=== PATIENT | female | born 1975 | race Two or more races ===

== ENCOUNTER → 2017-03-30 | Outpatient (CLI) | payer OTHER ==
[~2017-03-30] MED LIST: ALLEGRA; SERT50 PO
== END ==
LOC: CLAB 15:47
PROVIDERS: ATTEND Family Medicine
DX: T14.90 Injury, unspecified (principal); W46.0XXA Contact with hypodermic needle, initial encounter; Y92.69 Other specified industrial and construction area as the place of occurrence of the external cause
CPT/HCPCS: 36415; 80074; 86703